=== PATIENT | male | born 1930 | race Caucasian/White ===

== ENCOUNTER → 2017-10-25 | Outpatient (CLI) | payer MEDICARE ==
[~2017-10-25] MED LIST: ASPI81EC PO; Aspirin EC325 MG; CARV25 PO; CARV6.25 PO; CELE200 PO; CEPH500 PO; DIGO.25 PO; Flonase 0.05% N16 GM; GABA300 PO; GLUC500 PO; Glucosamine 1,1 EACH PO; HYDR1TAB94 PO; LEVFLO500 PO; LISI10 PO; LISI5 PO; LOVA20 PO; Lyrica225 MG PO; METANIX PO; METO100ER PO; METO50ER PO; PREG150; ROSU10TA PO; TAMS.4ER PO; WARF7.5 PO; XARELTO; XARELTO20 MG PO
[2017-10-25 16:56] LABS: Bilirubin, Urine Neg (Neg); Blood, Urine 2+ (Neg); Glucose Qualitative, Urine Neg (Neg); Ketones, Urine Neg (Neg); Leukocyte Esterase, Urine 1+ (Neg); Nitrite, Urine Neg (Neg); Protein, Urine Neg (Neg); Urobilinogen, Urine NORM (Normal)
[2017-10-25 17:04] LABS: Appearance, Urine Clear (Clear); Bacteria Few /hpf; Color, Urine Yellow (P-Yellow); Squamous Epithelial Cells Few /hpf (Few)
== END ==
LOC: LAB 16:46
PROVIDERS: Registered Nurse
DX: R10.31 Right lower quadrant pain (principal); R82.90 Unspecified abnormal findings in urine
CPT/HCPCS: 81001; 87086

== ENCOUNTER 2019-01-16 10:47 | Emergency (ER) | payer MEDICARE ==
[~2019-01-16] VITALS: Ht 182.9 cm; Wt 96.2 kg
[2019-01-16] MEDS ORDERED: Norco 10-325 T1 EACH PO (12:19)
== END 2019-01-16 12:27 | disposition home or self-care (01) ==
LOC: ER 10:47
DX: M54.5 Low back pain (principal); Z88.8 Allergy status to other drugs, medicaments and biological substances; Z79.899 Other long term (current) drug therapy; I10 Essential (primary) hypertension; I48.2 Chronic atrial fibrillation
CPT/HCPCS: 72100; 72220; 99283-25

== ENCOUNTER 2019-05-05 23:44 | Emergency (ER) | payer MEDICARE ==
[~2019-05-05] VITALS: Ht 182.9 cm; Wt 93.4 kg
[~2019-05-05 23:44] MED LIST changes: +Norco 10-325 T1 EACH PO
[2019-05-06 00:58] LABS: BASOPHILS ABSOLUTE AUTO 0.02 K/mm3 (0.00-0.23); BASOPHILS PERCENT AUTO 0 % (0-2); EOSINOPHILS ABSOLUTE AUTO 0.06 K/mm3 (0.00-0.68); EOSINOPHILS PERCENT AUTO 1 % (0-6); Hematocrit 45.6 % (37.0-53.0); Hemoglobin 15.8 g/dL (13.5-17.5); Mean Corpuscular HGB 32.7 pg (26.0-34.0); Mean Corpuscular HGB Conc 34.6 g/dL (31.5-36.5); Mean Corpuscular Volume 94 fL (80-100); Mean Platelet Volume 9.6 fL (9.1-12.4); Platelet Count 123 K/mm3 (150-400); RDW Coefficient Variation 12.9 % (11.7-14.2); RDW Standard Deviation 44.3 fL (35.1-46.3); Red Blood Cell Count 4.83 M/mm3 (4.30-5.90); White Blood Cell Count 7.12 K/mm3 (4.00-11.30)
[2019-05-06 01:02] LABS: IMMATURE GRAN ABSOLUTE AUTO 0.02 K/mm3 (0.00-0.10); IMMATURE GRAN PERCENT AUTO 0 % (0-1); LYMPHOCYTES ABSOLUTE AUTO 3.22 K/mm3 (0.84-5.20); LYMPHOCYTES PERCENT AUTO 45 % (21-46); MONOCYTES ABSOLUTE AUTO 0.54 K/mm3 (0.16-1.47); MONOCYTES PERCENT AUTO 8 % (4-13); NEUTROPHILS ABSOLUTE AUTO 3.26 K/mm3 (1.96-9.15); NEUTROPHILS PERCENT AUTO 46 % (41-73)
[2019-05-06 01:14] LABS: Alanine Aminotransfer (ALT/SGP 18 U/L (12-78); Albumin, Blood 4.4 g/dL (3.4-5.0); Albumin/Globulin Ratio 1.4 (0.8-1.8); Alk Phos 63 U/L (50-136); Anion Gap 10 mmol/L (6-16); Aspartate Aminotrans (AST/SGOT 23 U/L (12-37); Bilirubin, Total 1.6 mg/dL (0.1-1.0); Blood Urea Nitrogen 16 mg/dL (8-24); Bun/Creatinine Ratio 18.7 (12.0-20.0); CO2, Blood 26 mmol/L (21-32); Calcium, Blood 10.1 mg/dL (8.5-10.1); Chloride, Blood 100 mmol/L (98-108); Creatinine, Blood 0.86 mg/dL (0.60-1.20); Globulin, Blood 3.2 g/dL (2.2-4.0); Glomerular Filtration Rate >60 (60-); Glucose, Blood 102 mg/dL (70-99); Potassium, Blood 3.9 mmol/L (3.5-5.5); Sodium, Blood 136 mmol/L (136-145); Total Protein, Blood 7.6 g/dL (6.4-8.2)
[2019-05-06] MEDS ORDERED: Norco 5-325 Ta1 EACH PO (13:13)
[2019-05-16] MEDS ORDERED: Flonase 0.05% N16 GM (15:03)
== END 2019-05-06 04:47 | disposition home or self-care (01) ==
LOC: ER 23:44
PROVIDERS: Emergency Medicine
DX: K80.20 Calculus of gallbladder without cholecystitis without obstruction (principal); Z88.8 Allergy status to other drugs, medicaments and biological substances; Z79.899 Other long term (current) drug therapy
CPT/HCPCS: 36415; 74177; 76705; 80053; 83690; 84484; 85025; 96361; 96374; 99282; 99284; J2270; J7030; Q9967

== ENCOUNTER 2019-05-06 13:00 | Emergency (ER) | payer MEDICARE ==
[~2019-05-06] VITALS: Ht 180.3 cm; Wt 86.2 kg
[2019-05-06] MEDS ORDERED: Norco 5-325 Ta1 EACH PO (13:13)
[2019-05-16] MEDS ORDERED: Flonase 0.05% N16 GM (15:03)
== END 2019-05-06 13:18 | disposition home or self-care (01) ==
LOC: ER 13:00
DX: K80.10 Calculus of gallbladder with chronic cholecystitis without obstruction (principal); Z88.8 Allergy status to other drugs, medicaments and biological substances; Z79.899 Other long term (current) drug therapy; Z79.01 Long term (current) use of anticoagulants
CPT/HCPCS: 99282

== ENCOUNTER 2019-05-19 10:58 | Day surgery (SDC) | payer MEDICARE ==
[~2019-05-19] VITALS: Ht 182.9 cm; Wt 92.0 kg
[~2019-05-19 10:58] MED LIST changes: +Norco 5-325 Ta1 EACH PO
--- NOTE | 2019-05-19 11:40 | NUR ---
Ambulatory in Day Surgery Surgical site prepped with 2% Chlorhexidine cloth wipe. History, Chart, Medications and Allergies reviewed before start of procedure.Lungs clear T/O to Auscultation. Patient confirms NPO status and agrees with scheduled surgery. YELLOW METAL RING AND MED ALERT BRACECLET GIVEN TO . HC CALLED AFTER RECEIVING AN ORDER FROM DR RONQUILLO TO HAVE DEFIBRILLATOR TURNED OFF.
--- NOTE | 2019-05-19 13:29 | NUR ---
05/19/19 1329 [address] Blount PATIENT HAS IMPLANTED PACER/ICD. DEFIBRILLATOR TURNED OFF PRIOR TO PROCEDURE PER DR. RONQUILLO REQUEST.
--- NOTE | 2019-05-19 16:15 | NUR ---
Discharge instructions reviewed with patient. Patient verbalizes understanding. Copy given to patient to take home. Patient States Post-Procedure ride home has been arranged. Discharged via wheelchair to private car for ride home. ALL BELONGINGS RETURNED TO PATIENT. PT VERBALIZES UNDERSTANDING OF WHEN TO RESTART XARELTO.
== END 2019-05-19 22:47 | disposition home or self-care (01) ==
LOC: ORSCMMR 10:58 → ORD 12:30 → ORSCMMR 22:47
PROVIDERS: Surgery
PROC: 0FT44ZZ Resection of Gallbladder, Percutaneous Endoscopic Approach (ICD-10-PCS; principal; 2019-05-19 12:30)
PROC: BF031ZZ Plain Radiography of Gallbladder and Bile Ducts using Low Osmolar Contrast (ICD-10-PCS; principal; 2019-05-19 12:30)
DX: K80.20 Calculus of gallbladder without cholecystitis without obstruction (principal); I48.91 Unspecified atrial fibrillation; Z95.0 Presence of cardiac pacemaker; Z79.01 Long term (current) use of anticoagulants; Z79.899 Other long term (current) drug therapy
CPT/HCPCS: 74300; 82947; 88304; 93296; A9270-GY; C1729; C1894; J0694; J1100; J1885; J2250; J2405; J2704; J3010; J7030; J7120

== ENCOUNTER 2019-06-16 09:27 | Day surgery (SDC) | payer MEDICARE ==
[~2019-06-16] VITALS: Ht 180.3 cm; Wt 92.7 kg
--- NOTE | 2019-06-16 15:30 | NUR ---
DISCHARGE PT REMAINED A&OX3 AND DENIED ANY PAIN DURING RECOVERY. LEFT UPPER CHEST SITE REMAINS CDI-NO HEMATOMA NOTED. IV DC'D WITH CANULA IN TACT. DICHARGE PAPERWORK GONE OVER WITH PT AND FAMILY. PT AND FAMILY VERBALY STATED THE UNDERSTANDING OF THE DISCHARGE EDUCATION AND DENIED ANY QUESTIONS AT THIS TIME. PT UP TO DRESS WITH HELP FROM SPOUSE. PT WHEELED OUT BY THIS NURSE.
== END 2019-06-16 15:00 | disposition home or self-care (01) ==
LOC: MHTC 09:27
DX: Z45.010 Encounter for checking and testing of cardiac pacemaker pulse generator [battery] (principal); I48.91 Unspecified atrial fibrillation; I50.22 Chronic systolic (congestive) heart failure; I42.9 Cardiomyopathy, unspecified; E11.9 Type 2 diabetes mellitus without complications; E78.1 Pure hyperglyceridemia; I25.10 Atherosclerotic heart disease of native coronary artery without angina pectoris; Z88.8 Allergy status to other drugs, medicaments and biological substances; Z79.899 Other long term (current) drug therapy
CPT/HCPCS: 33263; 93005; 93010; 99152; 99153; C1721; C1781; J0690; J1644; J2250; J3010; J7030; J7040